=== PATIENT | female | born 1960 | race Caucasian/White ===

== ENCOUNTER 2021-09-10 16:48 | Emergency (ER) | payer BC ==
[~2021-09-10] VITALS: Ht 162.6 cm; Wt 107.0 kg
[2021-09-10] MEDS ORDERED: TRAM50TA2 PO (18:25)
[2021-09-10] MEDS ORDERED: CEPH-585 PO (18:25)
[2021-09-10] MEDS ORDERED: MUPI22OI30 TP (18:27)
[2021-09-10 19:52] VITALS: BP 150/96
== END 2021-09-10 19:53 | disposition home or self-care (01) ==
LOC: ER 16:51
DX: L03.116 Cellulitis of left lower limb (principal); L03.115 Cellulitis of right lower limb; I87.2 Venous insufficiency (chronic) (peripheral); Z79.2 Long term (current) use of antibiotics; Z79.899 Other long term (current) drug therapy
CPT/HCPCS: 82948; 99283